=== PATIENT | male | born 1955 | race Caucasian/White ===

== ENCOUNTER 2020-01-09 14:24 | Emergency (ER) | payer MEDICARE, MEDICAID ==
[~2020-01-09] VITALS: Wt 93.5 kg
[2020-01-09] MEDS ORDERED: FOLIC ACID1 MG PO (14:45)
[2020-01-09] MEDS ORDERED: CLOPIDOGREL75 M2 PO (14:45)
[2020-01-09] MEDS ORDERED: ASPIRIN ADULT L81 M3 PO (14:46)
[2020-01-09] MEDS ORDERED: ACETAMINOPHEN-H1 TA2 PO (14:46)
[2020-01-09] MEDS ORDERED: CYCLOBENZAPRINE10 M1 PO (14:46)
[2020-01-09] MEDS ORDERED: COLACE100 M1 PO (14:47)
[2020-01-09] MEDS ORDERED: METOPROLOL TAR100 M1 PO (14:47)
[2020-01-09] MEDS ORDERED: ATORVASTATIN CA80 MG PO (14:47)
[2020-01-09] MEDS ORDERED: CELECOXIB100 M1 PO (14:47)
[2020-01-09] MEDS ORDERED: RAMIPRIL10 MG PO (14:47)
[2020-01-09 15:36] LABS: HEMATOCRIT 37.9 % (42.0-52.0); HEMOGLOBIN 12.2 g/dL (13.5-18.0); MEAN CELL VOLUME 87 fl (78-100); MEAN CORPUSCULAR HEMOGLOBIN 28 pg (27-31); MEAN CORPUSCULAR HGB CONC 32 g/dL (33-37); MEAN PLATELET VOLUME 10.2 fl (7.4-10.4); PLATELET COUNT 238 K/mm3 (130-400); RED BLOOD COUNT 4.35 M/mm3 (4.20-5.60); RED CELL DISTRIBUTION WIDTH 14.3 % (11.5-14.5)
[2020-01-09 15:44] LABS: ALBUMIN 3.5 g/dL (3.4-4.8); POTASSIUM 3.9 mmol/L (3.5-5.1)
[2020-01-09 15:46] LABS: CALCIUM 8.3 mg/dL (8.3-10.5)
[2020-01-09 15:47] LABS: TOTAL PROTEIN 6.2 g/dL (6.2-8.1)
[2020-01-09 15:49] LABS: TOTAL BILIRUBIN 0.9 mg/dL (0.2-1.2)
[2020-01-09 16:10] LABS: URINE APPEARANCE CLOUDY; URINE COLOR YELLOW
[2020-01-09 16:11] LABS: URINE BILIRUBIN NEGATIVE (NEGATIVE); URINE BLOOD 50 ery/uL (NEGATIVE); URINE GLUCOSE NEGATIVE (NEGATIVE); URINE KETONE NEGATIVE (NEGATIVE); URINE LEUKOCYTE ESTERASE 2+ (NEGATIVE); URINE NITRATE NEGATIVE (NEGATIVE); URINE PROTEIN(semi-quant) 2+ mg/dL (NEGATIVE); URINE UROBILINOGEN NORMAL (NORMAL); URINE WBC >50 /hpf (0-3)
[2020-01-09 16:12] LABS: BAND 5 % (0-10); LYMPHOCYTE 4 % (20-51); MONOCYTE 7 % (3-10); NEUTROPHILS 84 % (42-75)
[2020-01-09 18:16] VITALS: BP 129/61
== END 2020-01-09 16:36 | disposition other institution (70) ==
LOC: ED 14:24
PROVIDERS: Physician Assistant
DX: N28.9 Disorder of kidney and ureter, unspecified (principal); N39.0 Urinary tract infection, site not specified; I25.10 Atherosclerotic heart disease of native coronary artery without angina pectoris; Z20.828 Contact with and (suspected) exposure to other viral communicable diseases; Z87.891 Personal history of nicotine dependence; Z86.73 Personal history of transient ischemic attack (TIA), and cerebral infarction without residual deficits; Z79.02 Long term (current) use of antithrombotics/antiplatelets; Z79.82 Long term (current) use of aspirin